=== PATIENT | female | born 1990 | race Caucasian/White ===

== ENCOUNTER 2016-11-04 06:00 | Inpatient (IN) ==
--- OUTSIDE RECORDS SUMMARY | 2016-11-04 06:12 | External Medical Summary | Referral Summary ---
:1990 Author Organization [facility] [address] [place] [id number] Care Team Providers Name Role Phone Tapan Lundberg Primary Care Physician Encounter VC Date(s): 11/22/15 - 11/22/15 [facility] [place] [phone] [place] Discharge Diagnosis: Well adult exam Discharge Diagnosis: Viral disease exposure Discharge Disposition: 01-Home or Self Care Attending Physician: Tapan Lundberg MD Admitting Physician: Tapan Lundberg MD Vital Signs Most recent to oldest [Reference Range]: 1 Temperature Tympanic [36.6-38.1 degC] 36.8 degC (11/22/15 7:28 AM) Peripheral Pulse Rate [60-100 bpm] 69 bpm (11/22/15 7:28 AM) Blood Pressure [90-140/60-90 mmHg] 114/68 mmHg (11/22/15 7:28 AM) SpO2 98 % (11/22/15 7:28 AM) Problem List Condition Effective Dates Status Health Status Informant Abscess of right thumb(Confirmed) Active Acute bronchitis(Confirmed) Active Acute maxillary sinusitis(Confirmed) Active infected uterus post 2008 Active miscarriage(Confirmed) Pain in right knee(Confirmed) Active Obesity(Confirmed) Active patient Acute paronychia(Confirmed) Active Allergies, Adverse Reactions, Alerts Substance Reaction Severity Status clindamycin Active Medications Mirena 52 mg intrauteral device 1 Each, IntraUteral, Once, # 1 Each, 0 Refill(s) Start Date: 12/23/13 Status: OrderedPrenatal 1 caps, Oral, Daily, 0 Refill(s) Start Date: 10/26/13 Status: Ordered Results No data available for this section Immunizations Vaccine Date Refusal Reason tetanus/diphth/pertuss (Tdap) adult/adol 01/01/10 tetanus/diphth/pertuss (Tdap) adult/adol 05/23/07 diphtheria/pertussis, whole cell/tetanus 07/10/93 diphtheria/pertussis, whole cell/tetanus 07/21/91 diphtheria/pertussis, whole cell/tetanus 02/25/90 diphtheria/pertussis, whole cell/tetanus 89 diphtheria/pertussis, whole cell/tetanus 89 haemophilus b conjugate (HbOC) vaccine 05/10/90 haemophilus b conjugate (HbOC) vaccine 05/01/90 hepatitis A adult vaccine 12/23/13 hepatitis A-hepatitis B vaccine 09/12/11 hepatitis B pediatric vaccine 01/05/96 hepatitis B pediatric vaccine 08/21/95 human papillomavirus vaccine 09/14/12 human papillomavirus vaccine 06/03/12 human papillomavirus vaccine 09/12/11 measles virus vaccine 02/25/90 measles/mumps/rubella virus vaccine 07/10/93 measles/mumps/rubella virus vaccine 05/11/91 meningococcal conjugate vaccine 09/12/11 poliovirus vaccine, inactivated 07/10/93 poliovirus vaccine, inactivated 02/25/90 poliovirus vaccine, inactivated 89 poliovirus vaccine, inactivated 89 Procedures Procedure Date Related Diagnosis Body Site LASIK1 2012 infected uterus post miscarriage 2009 1surgery on both eyes Social History Social History Type Response Smoking Status Never smoker Assessment and Plan Extracted from: Title: Ambulatory Patient Education Author: Tapan Lundberg MD Date: 11/22/15 Preventive Medicine Preventive Care for Adults, Female A healthy lifestyle and preventive care can promote health and wellness. Preventive health guidelines for women include the following sebastian practices. A routine yearly physical is a good way to check with your health care provider about your health and preventive screening. It is a chance to share any concerns and updates on your health and to receive a thorough exam. Visit your dentist for a routine exam and preventive care every 6 months. [place] your teeth twice a day and floss once a day. Good oral hygiene prevents tooth decay and gum disease. The frequency of eye exams is based on your age, health, family medical history, use of contact lenses, and other factors. Follow your health care provider's recommendations for frequency of eye exams. Eat a healthy diet. Foods like vegetables, fruits, whole grains, low- fat dairy products, and lean protein foods contain the nutrients you need without too many calories. Decrease your intake of f oods high in solid fats, added sugars, and salt. Eat the right amount of calories for you.Get information about a proper diet from your health care provider, if necessary. Regular physical exercise is one of the most important things you can do for your health. Most adults should get at least 150 minutes of moderate- intensity exercise (any activity that increases y our heart rate and causes you to sweat) each week. In addition, most adults need muscle-strengthening exercises on 2 or more days a week. Maintain a healthy weight. The body mass index (BMI) is a screening tool to identify possible weight problems. It provides an estimate of body fat based on height and weight. Your health care pro vider can find your BMI and can help you achieve or maintain a healthy weight. For adults 20 years and older: A BMI below 18.5 is considered underweight. A BMI of 18.5 to 24.9 is normal. A BMI of 25 to 29.9 is considered overweight. A BMI of 30 and above is considered obese. Maintain normal blood lipids and cholesterol levels by exercising and minimizing your intake of saturated fat. Eat a balanced diet with plenty of fruit and vegetables. Blood tests for lipids and cholesterol should begin at age 20 and be repeated every 5 years. If your lipid or cholesterol levels are high, you are over 50, or you are at high risk for heart disease, you may need your cholesterol levels checked more frequently.Ongoing high lipid and cholesterol levels should be treated with medicines if diet and exercise are not working. If you smoke, find out from your health care provider how to quit. If you do not use tobacco, do not start. Lung cancer screening is recommended for adults aged 5580 years who are at high risk for developing lung cancer because of a history of smoking. A yearly low-dose CT scan of the lungs is recom mended for people who have at least a [id number] history of smoking and are a current smoker or have quit within the past 15 years. A pack year of smoking is smoking an average of 1 pack of cigarettes a day for 1 year (for example: 1 pack a day for 30 years or 2 packs a day for 15 years). Yearly screening should continue until the smoker has stopped smoking for at least 15 years. Yearly screening sh ould be stopped for people who develop a health problem that would prevent them from having lung cancer treatment. If you are , do not drink alcohol. If you are , be very cautious about drinking alcohol. If you are not and choose to drink alcohol, do not have more than 1 drink pe r day. One drink is considered to be 12 ounces (355 mL) of beer, 5 ounces (148 mL) of wine, or 1.5 ounces (44 mL) of liquor. Avoid use of street drugs. Do not share needles with anyone. Ask for help if you need support or instructions about stopping the use of drugs. High blood pressure causes heart disease and increases the risk of stroke. Your blood pressure should be checked at least every 1 to 2 years. Ongoing high blood pressure should be treated with me dicines if weight loss and exercise do not work. If you are 5579 years old, ask your health care provider if you should take aspirin to prevent strokes. Diabetes screening is done by taking a blood sample to check your blood glucose level after you have not eaten for a certain period of time (fasting). If you are not overweight and you do not hav e risk factors for diabetes, you should be screened once every 3 years starting at age 45. If you are overweight or obese and you are 4070 years of age, you should be screened for diabetes every year as part of your cardiovascular risk assessment. Breast cancer screening is essential preventive care for women. You should practice "breast self-awareness." This means understanding the normal appearance and feel of your breasts and may includ e breast self-examination. Any changes detected, no matter how small, should be reported to a health care provider. Women in their 20s and 30s should have a clinical breast exam (CBE) by a health care p trudi as part of a regular health exam every 1 to 3 years. After age 40, women should have a CBE every year. Starting at age 40, women should consider having a mammogram (breast X-ray test) every year . Women who have a family history of breast cancer should talk to their health care provider about genetic screening. Women at a high risk of breast cancer should talk to their health care providers about having an MRI and a mammogram every year. Breast cancer gene (BRCA)-related cancer risk assessment is recommended for women who have family members with BRCA-related cancers. BRCA-related cancers include breast, ovarian, tubal, and perit dubon cancers. Having family members with these cancers may be associated with an increased risk for harmful changes (mutations) in the breast cancer genes BRCA1 and BRCA2. Results of the assessment julio cesar l determine the need for genetic counseling and BRCA1 and BRCA2 testing. Your health care provider may recommend that you be screened regularly for cancer of the pelvic organs (ovaries, uterus, and vagina). This screening involves a pelvic examination, including check ing for microscopic changes to the surface of your cervix (Pap test). You may be encouraged to have this screening done every 3 years, beginning at age 21. For women ages 3065, health care providers may recommend pelvic exams and Pap testing every 3 years, or they may recommend the Pap and pelvic exam, combined with testing for human papilloma vi kitty (HPV), every 5 years. Some types of HPV increase your risk of cervical cancer. Testing for HPV may also be done on women of any age with unclear Pap test results. Other health care providers may not recommend any screening for non women who are considered low risk for pelvic cancer and who do not have symptoms. Ask your health care provider if a screening pelvic exam is right for you. If you have had past treatment for cervical cancer or a condition that could lead to cancer, you need Pap tests and screening for cancer for at least 20 years after your treatment. If Pap tests h ave been discontinued, your risk factors (such as having a new sexual partner) need to be reassessed to determine if screening should resume. Some women have medical problems that increase the chance of getting cervical cancer. In these cases, your health care provider may recommend more frequent screening and Pap tests. Colorectal cancer can be detected and often prevented. Most routine colorectal cancer screening begins at the age of 50 years and continues through age 75 years. However, your health care provide r may recommend screening at an earlier age if you have risk factors for colon cancer. On a yearly basis, your health care provider may provide home test kits to check for hidden blood in the stool. Use of a small camera at the end of a tube, to directly examine the colon ( sigmoidoscopy or colonoscopy), can detect the earliest forms of colorectal cancer. Talk to your health care provider about this at age 50, when routine screening begins. Direct exam of the colon should be repeated every 510 years through age 75 years, unless early forms of precancerous polyps or small growths are found. People who are at an increased risk for hepatitis B should be screened for this virus. You are considered at high risk for hepatitis B if: You were born in a country where hepatitis B occurs often. Talk with your health care provider about which countries are considered high risk. Your parents were born in a high-risk country and you have not received a shot to protect against hepatitis B (hepatitis B vaccine). You have HIV or AIDS. You use needles to inject street drugs. You live with, or have sex with, someone who has hepatitis B. You get hemodialysis treatment. You take certain medicines for conditions like cancer, organ transplantation, and autoimmune conditions. Hepatitis C blood testing is recommended for all people born from 1945 through 1965 and any individual with known risks for hepatitis C. Practice safe sex. Use condoms and avoid high-risk sexual practices to reduce the spread of sexually transmitted infections (STIs). STIs include gonorrhea, chlamydia, syphilis, trichomonas, herpe s, HPV, and human immunodeficiency virus (HIV). Herpes, HIV, and HPV are viral illnesses that have no cure. They can result in disability, cancer, and . You should be screened for sexually transmitted illnesses (STIs) including gonorrhea and chlamydia if: You are sexually active and are younger than 24 years. You are older than 24 years and your health care provider tells you that you are at risk for this type of infection. Your sexual activity has changed since you were last screened and you are at an increased risk for chlamydia or gonorrhea. Ask your health care provider if you are at risk. If you are at risk of being infected with HIV, it is recommended that you take a prescription medicine daily to prevent HIV infection. This is called preexposure prophylaxis (PrEP). You are considered at risk if: You are sexually active and do not regularly use condoms or know the HIV status of your partner(s). You take drugs by injection. You are sexually active with a partner who has HIV. Talk with your health care provider about whether you are at high risk of being infected with HIV. If you choose to begin PrEP, you should first be tested for HIV. You should then be tested every 3 months for as long as you are taking PrEP. Osteoporosis is a disease in which the bones lose minerals and strength with aging. This can result in serious bone fractures or breaks. The risk of osteoporosis can be identified using a bone de nsity scan. Women ages 65 years and over and women at risk for fractures or osteoporosis should discuss screening with their health care providers. Ask your health care provider whether you should take a calcium supplement or vitamin D to reduce the rate of osteoporosis. Menopause can be associated with physical symptoms and risks. Hormone replacement therapy is available to decrease symptoms and risks. You should talk to your health care provider about whether hormone replacement therapy is right for you. Use sunscreen. Apply sunscreen liberally and repeatedly throughout the day. You should seek shade when your shadow is shorter than you. Protect yourself by wearing long sleeves, pants, a wide-cande mmed hat, and sunglasses year round, whenever you are outdoors. Once a month, do a whole body skin exam, using a mirror to look at the skin on your back. Tell your health care provider of new moles, moles that have irregular borders, moles that are larger mari n a pencil eraser, or moles that have changed in shape or color. Stay current with required vaccines (immunizations). Influenza vaccine. All adults should be immunized every year. Tetanus, diphtheria, and acellular pertussis (Td, Tdap) vaccine. women should receive 1 dose of Tdap vaccine during each . The dose should be obtained regardless of the length o f time since the last dose. Immunization is preferred during the [id number] week of gestation. An adult who has not previously received Tdap or who does not know her vaccine status should receive 1 dos e of Tdap. This initial dose should be followed by tetanus and diphtheria toxoids (Td) booster doses every 10 years. Adults with an unknown or incomplete history of completing a 3-dose immunization seri es with Td-containing vaccines should begin or complete a primary immunization series including a Tdap dose. Adults should receive a Td booster every 10 years. Varicella vaccine. An adult without evidence of immunity to varicella should receive 2 doses or a second dose if she has previously received 1 dose. females who do not have evidence of i mmunity should receive the first dose after . This first dose should be obtained before leaving the health care facility. The second dose should be obtained 48 weeks after the first dose. Human papillomavirus (HPV) vaccine. Females aged 1326 years who have not received the vaccine previously should obtain the 3-dose series. The vaccine is not recommended for use in fem ales. However, testing is not needed before receiving a dose. If a female is found to be after receiving a dose, no treatment is needed. In that case, the remaining doses should be de layed until after the . Immunization is recommended for any person with an immunocompromised condition through the age of 26 years if she did not get any or all doses earlier. During the 3-dose series, the second dose should be obtained 48 weeks after the first dose. The third dose should be obtained 24 weeks after the first dose and 16 weeks after the second dose. Zoster vaccine. One dose is recommended for adults aged 60 years or older unless certain conditions are present. Measles, mumps, and rubella (MMR) vaccine. Adults born before 1957 generally are considered immune to measles and mumps. Adults born in 1957 or later should have 1 or more doses of MMR vaccine un less there is a contraindication to the vaccine or there is laboratory evidence of immunity to each of the three diseases. A routine second dose of MMR vaccine should be obtained at least 28 days after the first dose for students attending postsecondary schools, health care workers, or international travelers. People who received inactivated measles vaccine or an unknown type of measles vaccine during should receive 2 doses of MMR vaccine. People who received inactivated mumps vaccine or an unknown type of mumps vaccine before 1978 and are at high risk for mumps infection should consider immunization with 2 doses of MMR vaccine. For females of childbearing age, rubella immunity should be determined. If there is no evidence of immunity, females who are not should be vaccinated. If there is no evidence of immunity, females who are should delay immunization until after . Unvaccinated health care workers born before 1957 who lack laboratory evidence of measles, mumps, or rubella immunity or laboratory confirmation of disease should consider measles and mumps immunization with 2 doses of MMR vaccine or rubella immunization with 1 dose of MMR vaccine. Pneumococcal 13-valent conjugate (PCV13) vaccine. When indicated, a person who is uncertain of his immunization history and has no record of immunization should receive the PCV13 vaccine. All salty lts 65 years of age and older should receive this vaccine. An adult aged 19 years or older who has certain medical conditions and has not been previously immunized should receive 1 dose of PCV13 vaccine . This PCV13 should be followed with a dose of pneumococcal polysaccharide ( PPSV23) vaccine. Adults who are at high risk for pneumococcal disease should obtain the PPSV23 vaccine at least 8 weeks after the dose of PCV13 vaccine. Adults older than 65 years of age who have normal immune system function should obtain the PPSV23 vaccine dose at least 1 year after the dose of PCV13 vaccine. Pneumococcal polysaccharide (PPSV23) vaccine. When PCV13 is also indicated, PCV13 should be obtained first. All adults aged 65 years and older should be immunized. An adult younger than age 65 ye ars who has certain medical conditions should be immunized. Any person who resides in a residential or long-term care facility should be immunized. An adult smoker should be immunized. People with an i mmunocompromised condition and certain other conditions should receive both PCV13 and PPSV23 vaccines. People with human immunodeficiency virus (HIV) infection should be immunized as soon as possible af ter diagnosis. Immunization during chemotherapy or radiation therapy should be avoided. Routine use of PPSV23 vaccine is not recommended for [place] Indians, [place] Natives, or people younger than 65 y ears unless there are medical conditions that require PPSV23 vaccine. When indicated, people who have unknown immunization and have no record of immunization should receive PPSV23 vaccine. One-time kiera ccination 5 years after the first dose of PPSV23 is recommended for people aged 1964 years who have chronic kidney failure, nephrotic syndrome, asplenia , or immunocompromised conditions. People who r eceived 12 doses of PPSV23 before age 65 years should receive another dose of PPSV23 vaccine at age 65 years or later if at least 5 years have passed since the previous dose. Doses of PPSV23 are not needed for people immunized with PPSV23 at or after age 65 years. Meningococcal vaccine. Adults with asplenia or persistent complement component deficiencies should receive 2 doses of quadrivalent meningococcal conjugate (MenACWY-D) vaccine. The doses should be obtained at least 2 months apart. Microbiologists working with certain meningococcal bacteria, recruits, people at risk during an outbreak, and people who travel to or live in countries with a high rate of meningitis should be immunized. A first-year college student up through age 21 years who is living in a residence goldsmith should receive a dose if she did not receive a dose on or after her 6th birthday. Adults who have certain high-risk conditions should receive one or more doses of vaccine. Hepatitis A vaccine. Adults who wish to be protected from this disease, have certain high-risk conditions, work with hepatitis A-infected animals, work in hepatitis A research labs, or travel to or work in countries with a high rate of hepatitis A should be immunized. Adults who were previously unvaccinated and who anticipate close contact with an international adoptee during the first 60 days after arrival in the [place] from a country with a high rate of hepatitis A should be immunized. Hepatitis B vaccine. Adults who wish to be protected from this disease, have certain high-risk conditions, may be exposed to blood or other infectious body fluids, are household contacts or sex p artners of hepatitis B positive people, are clients or workers in certain care facilities, or travel to or work in countries with a high rate of hepatitis B should be immunized. Haemophilus influenzae type b (Hib) vaccine. A previously unvaccinated person with asplenia or sickle cell disease or having a scheduled splenectomy should receive 1 dose of Hib vaccine. Regardle ss of previous immunization, a recipient of a hematopoietic stem cell transplant should receive a 3-dose series 612 months after her successful transplant. Hib vaccine is not recommended for adults with HIV infection. Preventive Services / Frequency Ages 19 to 39 years Blood pressure check. / Every 35 years. Lipid and cholesterol check. / Every 5 years beginning at age 20. Clinical breast exam. / Every 3 years for women in their 20s and 30s. BRCA-related cancer risk assessment. / For women who have family members with a BRCA-related cancer (breast, ovarian, tubal, or peritoneal cancers). Pap test. / Every 2 years from ages 21 through 29. Every 3 years starting at age 30 through age 65 or 70 with a history of 3 consecutive normal Pap tests. HPV screening. / Every 3 years from ages 30 through ages 65 to 70 with a history of 3 consecutive normal Pap tests. Hepatitis C blood test. / For any individual with known risks for hepatitis C. Skin self-exam. / Monthly. Influenza vaccine. / Every year. Tetanus, diphtheria, and acellular pertussis (Tdap, Td) vaccine. / Consult your health care provider. women should receive 1 dose of Tdap vaccine during each . 1 dose of Td every 10 years. Varicella vaccine. / Consult your health care provider. females who do not have evidence of immunity should receive the first dose after . HPV vaccine. / 3 doses over 6 months, if 26 and younger. The vaccine is not recommended for use in females. However, testing is not needed before receiving a dose. Measles, mumps, rubella (MMR) vaccine. / You need at least 1 dose of MMR if you were born in 1957 or later. You may also need a 2nd dose. For females of childbearing age, rubella immunity shoul d be determined. If there is no evidence of immunity, females who are not should be vaccinated. If there is no evidence of immunity, females who are should delay immunization until after . Pneumococcal 13-valent conjugate (PCV13) vaccine. / Consult your health care provider. Pneumococcal polysaccharide (PPSV23) vaccine. / 1 to 2 doses if you smoke cigarettes or if you have certain conditions. Meningococcal vaccine. / 1 dose if you are age 19 to 21 years and a first-year college student living in a residence g[place], or have one of several medical conditions, you need to get vaccinated against meningococcal disease. You may also need additional booster doses. Hepatitis A vaccine. / Consult your health care provider. Hepatitis B vaccine. / Consult your health care provider. Haemophilus influenzae type b (Hib) vaccine. / Consult your health care provider. Ages 40 to 64 years Blood pressure check. / Every year. Lipid and cholesterol check. / Every 5 years beginning at age 20 years. Lung cancer screening. / Every year if you are aged 5580 years and have a 85-ifus-qjah history of smoking and currently smoke or have quit within the past 15 years. Yearly screening is stopped once you have quit smoking for at least 15 years or develop a health problem that would prevent you from having lung cancer treatment. Clinical breast exam. / Every year after age 40 years. BRCA-related cancer risk assessment. / For women who have family members with a BRCA-related cancer (breast, ovarian, tubal, or peritoneal cancers). Mammogram. / Every year beginning at age 40 years and continuing for as long as you are in good health. Consult with your health care provider. Pap test. / Every 3 years starting at age 30 years through age 65 or 70 years with a history of 3 consecutive normal Pap tests. HPV screening. / Every 3 years from ages 30 years through ages 65 to 70 years with a history of 3 consecutive normal Pap tests. Fecal occult blood test (FOBT) of stool. / Every year beginning at age 50 years and continuing until age 75 years. You may not need to do this test if you get a colonoscopy every 10 years. Flexible sigmoidoscopy or colonoscopy. / Every 5 years for a flexible sigmoidoscopy or every 10 years for a colonoscopy beginning at age 50 years and continuing until age 75 years. Hepatitis C blood test. / For all people born from 1945 through 1965 and any individual with known risks for hepatitis C. Skin self-exam. / Monthly. Influenza vaccine. / Every year. Tetanus, diphtheria, and acellular pertussis (Tdap/Td) vaccine. / Consult your health care provider. women should receive 1 dose of Tdap vaccine during each . 1 dose of Td every 10 years. Varicella vaccine. / Consult your health care provider. females who do not have evidence of immunity should receive the first dose after . Zoster vaccine. / 1 dose for adults aged 60 years or older. Measles, mumps, rubella (MMR) vaccine. / You need at least 1 dose of MMR if you were born in 1957 or later. You may also need a second dose. For females of childbearing age, rubella immunity sh ould be determined. If there is no evidence of immunity, females who are not should be vaccinated. If there is no evidence of immunity, females who are should delay immunization until after . Pneumococcal 13-valent conjugate (PCV13) vaccine. / Consult your health care provider. Pneumococcal polysaccharide (PPSV23) vaccine. / 1 to 2 doses if you smoke cigarettes or if you have certain conditions. Meningococcal vaccine. / Consult your health care provider. Hepatitis A vaccine. / Consult your health care provider. Hepatitis B vaccine. / Consult your health care provider. Haemophilus influenzae type b (Hib) vaccine. / Consult your health care provider. Ages 65 years and over Blood pressure check. / Every year. Lipid and cholesterol check. / Every 5 years beginning at age 20 years. Lung cancer screening. / Every year if you are aged 5580 years and have a 38-dnst-dzdq history of smoking and currently smoke or have quit within the past 15 years. Yearly screening is stopped once you have quit smoking for at least 15 years or develop a health problem that would prevent you from having lung cancer treatment. Clinical breast exam. / Every year after age 40 years. BRCA-related cancer risk assessment. / For women who have family members with a BRCA-related cancer (breast, ovarian, tubal, or peritoneal cancers). Mammogram. / Every year beginning at age 40 years and continuing for as long as you are in good health. Consult with your health care provider. Pap test. / Every 3 years starting at age 30 years through age 65 or 70 years with 3 consecutive normal Pap tests. Testing can be stopped between 65 and 70 years with 3 consecutive normal Pap t ests and no abnormal Pap or HPV tests in the past 10 years. HPV screening. / Every 3 years from ages 30 years through ages 65 or 70 years with a history of 3 consecutive normal Pap tests. Testing can be stopped between 65 and 70 years with 3 consecutive normal Pap tests and no abnormal Pap or HPV tests in the past 10 years. Fecal occult blood test (FOBT) of stool. / Every year beginning at age 50 years and continuing until age 75 years. You may not need to do this test if you get a colonoscopy every 10 years. Flexible sigmoidoscopy or colonoscopy. / Every 5 years for a flexible sigmoidoscopy or every 10 years for a colonoscopy beginning at age 50 years and continuing until age 75 years. Hepatitis C blood test. / For all people born from 1945 through 1965 and any individual with known risks for hepatitis C. Osteoporosis screening. / A one-time screening for women ages 65 years and over and women at risk for fractures or osteoporosis. Skin self-exam. / Monthly. Influenza vaccine. / Every year. Tetanus, diphtheria, and acellular pertussis (Tdap/Td) vaccine. / 1 dose of Td every 10 years. Varicella vaccine. / Consult your health care provider. Zoster vaccine. / 1 dose for adults aged 60 years or older. Pneumococcal 13-valent conjugate (PCV13) vaccine. / Consult your health care provider. Pneumococcal polysaccharide (PPSV23) vaccine. / 1 dose for all adults aged 65 years and older. Meningococcal vaccine. / Consult your health care provider. Hepatitis A vaccine. / Consult your health care provider. Hepatitis B vaccine. / Consult your health care provider. Haemophilus influenzae type b (Hib) vaccine. / Consult your health care provider. Family history and personal history of risk and conditions may change your health care provider's recommendations. This information is not intended to replace advice given to you by your health care provider. Make sure you discuss any questions you have with your health care provider. Document Released: 04/22/2002 Document Revised: 03/17/2015 Document Reviewed: 07/22/2011 ExitCare Patient Information [address] [facility]. No follow up information was provided. Extracted from: Title: Female Physical Author: Tapan Lundberg MD Date: 11/22/15 Impression and Plan Diagnosis Well adult exam (DCW41-EC Z00.00, Discharge, Medical). Viral disease exposure (ZHN84-IH Z20.828, Discharge, Medical). Plan: 1) Patient advised to postpone for at least 2-3 months ( getting her IUD out today), to help prevent Zika virus infection of the , due to potential exposure. If she or her get sick, then she will need to wait 6 months. 2) Bring in your wellness lab. 3) Flu shot to be obtained at work. 4) See me in one year and as needed. 5) Avoid alcohol and cat litter. 6) Healthy diet and daily exercise helps most things. 7) Immunizations reviewed.. Orders Orders (Selected) Outpatient Orders Ordered Periodic Comp Preventive Med 18 to 39 years Est 46510: . Dx/Order Association Plan: Diagnosis: Viral disease exposure Comment: Ordered: Periodic Comp Preventive Med 18 to 39 years Est 36027; 11/22/15 13:48:00 CDT, Well adult exam | Viral disease exposure Diagnosis: Well adult exam Comment: Ordered: Periodic Comp Preventive Med 18 to 39 years Est 60121; 11/22/15 13:48:00 CDT, Well adult exam | Viral disease exposure End of Orders .
--- OUTSIDE RECORDS SUMMARY | 2016-11-04 06:12 | External Medical Summary | Continuity of Care Document ---
:1990 Author Organization [facility] Allergies Medications Medication Packaging Start Date Stop Route Dosage Sig Date 04/17/2009 05/01/19 17 take 1 tablet VITAMINS by oral route every day Unspecified 11/05/2013 01/01/20 MIRENA 16 DIRECTED Tablet 04/09/2016 04/09/19 PRENATE 17 take 1 tablet ELITE by oral route every day Gram 04/09/2016 04/15/19 TERAZOL 7 17 insert 1 applicatorful by vaginal route every day for 7 days at bedtime Tablet 04/09/2016 07/10/19 17 take 1 tablet PLUS by oral route every day with a meal Tablet 08/26/2016 TYLENOL take 1 tablet by oral route every 4 hours as needed as needed Problems Date Dx Coded Attending Type Code Diagnosis Diagnosed By 05/02/2016 Irish Avendano Z34.81 Encounter for suprvsn of normal , first trimester 05/02/2016 Irish Avendano Z3A.13 13 weeks gestation of 06/12/2016 Irish Avendano Z34.82 Encounter for suprvsn of normal , second trimester 06/12/2016 Irish Avendano Z3A.18 18 weeks gestation of 09/27/2016 Irish Avendano Z34.83 Encounter for suprvsn of normal , third trimester 09/27/2016 Irish Avendano Z3A.34 34 weeks gestation of Procedures Code Description Performed By Performed On 05/02/2016 13913 Ultrasound, Nuchal Translucency Measurement 06/12/2016 87450 Ultrasnd exam of preg uterus, compl OB 09/27/2016 46284 Visit No Charge Results Encounters ACCT Visit Discharge Status Pt. Type Provider Facility Loc./Unit Complaint No. Date/Time [id number] 10/21/2016 10/21/2016 CLS Outpatient Juan Alberto, 15:15:00 23:59:59 Irish Cristobal [id number] 10/14/2016 10/14/2016 CLS Outpatient Juan Alberto, 15:15:00 23:59:59 Irish L [id number] 10/07/2016 10/07/2016 CLS Outpatient Juan Alberto, 09:30:00 23:59:59 Irish L [id number] 09/27/2016 09/27/2016 CLS Outpatient Juan Alberto, 14:10:00 23:59:59 Irish L [id number] 09/09/2016 09/09/2016 CLS Outpatient Juan Alberto, 09:20:00 23:59:59 Irish L [id number] 08/29/2016 08/29/2016 CLS Outpatient Juan Alberto, 14:00:00 23:59:59 Irish L [id number] 08/07/2016 08/07/2016 CLS Outpatient Juan Alberto, 10:00:00 23:59:59 Irish L [id number] 07/10/2016 07/10/2016 CLS Outpatient Juan Alberto, 10:45:00 23:59:59 Irish L [id number] 06/12/2016 06/12/2016 CLS Outpatient Juan Alberto, 09:15:00 23:59:59 Irish L [id number] 06/12/2016 06/12/2016 CLS Outpatient Juan Alberto, 08:45:00 23:59:59 Irish L [id number] 06/07/2016 06/07/2016 CLS Outpatient Juan Alberto, 14:58:00 23:59:59 Irish L [id number] 05/29/2016 05/29/2016 CLS Outpatient Juan Alberto, 11:00:00 23:59:59 Irish L [id number] 05/02/2016 05/02/2016 CLS Outpatient Juan Alberto, 09:45:00 23:59:59 Irish L [id number] 05/02/2016 05/02/2016 CLS Outpatient Juan Alberto, 09:15:00 23:59:59 Irish L [id number] 04/09/2016 04/09/2016 CLS Outpatient Juan Alberto, 09:00:00 23:59:59 Irish L [id number] 01/01/2016 01/01/2016 CLS Outpatient Juan Alberto, 11:30:00 23:59:59 Irish L [id number] 12/13/2015 12/13/2015 CLS Outpatient Alexandra, 10:45:00 23:59:59 Brittany [id number] 11/22/2015 11/22/2015 CLS Outpatient [place], 08:30:00 23:59:59 Treasure Motron [id number] 10/28/2016 ACT Outpatient Juan Alberto, 15:15:00 Irish Cristobal [id number] 05/02/2016 Document 09:39:32 Registration [id number] 01/01/2016 Document 12:17:48 Registration
--- OUTSIDE RECORDS SUMMARY | 2016-11-04 06:12 | External Medical Summary | Continuity of Care Document ---
:1990 Author Organization [facility] Address [address] [place], [place] [id number] Phone Care Team Providers Name Role Phone Tapan Lundberg MD Unavailable Unavailable Allergies, Adverse Reactions, Alerts Substance Reaction Severity Status clindamycin Rash Unknown Active Medications Medication Instructions Dosage Effective Dates Status Comments (start - stop) Tylenol 325 mg take 1 tablet by - Active tablet oral route every 4 hours as needed as needed 28 mg take 1 by Oral route Not Available - Active iron-800 mcg every day tablet Problems Condition Effective Dates (start - stop) Clinical Status Encntr for try on baster exam (general) - (routine) w abnormal findings Encounter for suprvsn of normal - , third trimester 34 weeks gestation of - Encounter for suprvsn of normal - , second trimester 18 weeks gestation of - Encounter for suprvsn of normal - , third trimester 30 weeks gestation of - Pap Smear Screening, Cervix - Pap Smear Screening, Cervix - Encounter for suprvsn of normal - , first trimester 9 weeks gestation of - Encounter for routine checking of intrauterine contracep dev Encounter for removal of intrauterine - contraceptive device Encounter for routine checking of intrauterine contracep dev Encounter for suprvsn of normal - , first trimester 13 weeks gestation of - Encounter for suprvsn of normal - , first trimester 13 weeks gestation of - Encounter for suprvsn of normal - , second trimester 16 weeks gestation of - Encounter for suprvsn of normal - , second trimester 18 weeks gestation of - Encounter for suprvsn of normal - , second trimester 22 weeks gestation of - Encounter for suprvsn of normal - , second trimester 26 weeks gestation of - Encounter for suprvsn of normal - , third trimester 36 weeks gestation of - Encounter for suprvsn of normal - , third trimester 35 weeks gestation of - Procedures Procedure Date OB Visit No Charge Immuniz admnin, 1 vac, sngl/combo 19 Yrs + TDAP VACCINE >7 IM Results Test Name Date and Time Measure Units Reference Range Abnormal Flag Comments Unknown Advance Directives Directive Yes / No Effective Date File Name Unknown Encounters Encounter Practice Location Reason(s) Diagnoses Date Provider Care Team Description For Visit Members Cathy [place] Encounter for Juan Alberto Referring In Womens suprvsn of Irish. Provider: Health DANIELE, normal 7 [address] , third Medical [address] [address]22, [email or web address] Mize Johnie, [address] [place] [address], weeks gestation Chin Delatorre, of 120, Center , [place] [address], [place], tel:[phone] [place], [id number] , . [id number]. tel: [phone] Cathy [place] Encounter for Juan Alberto In Womens suprvsn of [place]. Health [place], normal 7 700 PO Box , third Medical 1522, [email or web address] [facility] [place], weeks gestation Chin Delatorre, of 120, [id number], [facility], tel:[phone] [address] , [place]. tel: [phone] Cathy [place] Encounter for Moy-2 Juan Alberto Referring In Womens suprvsn of 1-201 [place]. Provider: Health [place], normal 7 700 Irish PO Box , third Medical Juan Alberto L, 1522, [email or web address] Center [address] [place], weeks gestation Chin Delatorre, of [address] [id number], [place] [address], [place]NA, [place], tel: [phone] LENA, , . [id number]. tel: tel: [phone] Cathy [place] Encounter for Warren-2 Juan Alberto In Womens suprvsn of 2-201 Irish. Health [place], normal 7 700 PO Box , third Medical 1522, [email or web address] [place], weeks gestation Chin Delatorre, of 120, [id number], [place], [place], tel:[phone] , [place]. tel: [phone] Cathy [place] Encounter for May-3 Juan Alberto In Womens suprvsn of 1-201 Irish. Health [place], normal 7 700 PO Box , Medical 1522, second [facility] [place], [email or web address] Chin Delatorre, weeks gestation 120, , of [facility] [place], tel: [phone] , [place]. tel: [phone] Cathy [place] Encounter for May-0 Juan Alberto In Womens suprvsn of 3-201 Irish. Health [place], normal 7 700 PO Box , Medical 1522, second [facility] [place], [email or web address] Chin Delatorre, weeks gestation 120, [id number], of [place], [place], tel: [phone] , [place]. tel: [phone] Cathy [place] Encounter for Apr-0 Juan Alberto In Womens suprvsn of 5-201 Irish. Health [place], normal 7 700 PO Box , Medical 1522, second [facility] [place], [email or web address] Chin Delatorre, weeks gestation 120, [id number], of [place], [place], tel:[phone] , [place]. tel: [phone] Cathy [place] Encounter for Apr-0 Juan Alberto In Womens Ultrasound suprvsn of 5-201 Irish. Health DANIELE, normal 7 700 PO Box , Medical 1522, second [facility] [place], [email or web address] Chin Delatorre, weeks gestation 120, [id number], of [facility] [place], tel:[phone] , [place]. tel: [phone] Cathy [place] Encounter for Mar-2 Juan Alberto In Womens suprvsn of 2-201 Irish. Health DANIELE, normal 7 700 PO Box , Medical 1522, second [facility] [place], [email or web address] Chin Delatorre, weeks gestation 120, [id number], of [place], [place], tel:[phone] , [place]. tel: [phone] Cathy [place] Encounter for Feb-2 Juan Alberto In Womens suprvsn of 3-201 Irish. Marysol SANABRIA, normal 7 700 PO Box , first Medical 1522, [facility], weeks gestation Chin Delatorre, of 120, [id number], [place], [place], tel:[phone] , [place]. tel: [phone] Cathy [place] Encounter for Feb-2 Juan Alberto In Womens Ultrasound suprvsn of 3-201 Irish. Marysol SANABRIA, normal 7 700 PO Box , first Medical 1522, [email or web address] [facility], weeks gestation Chin Delatorre, of 120, [id number], [facility] [place], tel:[phone] , [place]. tel: [phone] Cathy [place] Pap Smear Florentino-3 Juan Alberto In Womens Screening, 1-201 Irish. Health DANIELE, CervixEncounter 7 700 PO Box for suprvsn of Medical 1522, normal [facility] [place], , first Chin Delatorre, trimester9 weeks 120, [id number], gestation of [place], [place], tel:[phone] , [place]. tel: [phone] Cathy [place] Encounter for Oct-2 Juan Alberto In Womens routine checking 4-201 Irish. Health [place], of intrauterine 6 700 PO Box contracep Medical 1522, devEncounter for [place], removal of Chin Delatorre, intrauterine 120, [id number], contraceptive [place], device [place], tel:[phone] , [place]. tel:[phone] [facility] [place] Encntr for try on baster Dec- Alexandra In Womens exam (general) 5-201 Brittany. Health DANIELE, (routine) w 6 700 PO Box abnormal Medical 1522, findingsPap [facility], Smear Screening, Chin Delatorre, Cervix 120, , [place], [place], tel:[phone] , [place]. tel:[phone] [facility] [place] Encounter for Sep-1 Garza In Womens routine checking 4-201 Treasure. Health DANIELE, of intrauterine 6 700 PO Box contracep dev Medical 1522, [place], , Chin PAREDES, 120, [id number], [place], [place], tel:[phone] , [place]. tel:[phone] [facility] Oct-0 Juan Alberto In Womens 6-201 Irish. Health DANIELE, 3 700 PO Box Medical 1522, [place], , Chin PARED[place], 120, [id number], [place], [place], tel:[phone] , [place]. tel:[phone] Family History Family Member Diagnosis Age At Onset Maternal Grandmother Diabetes mellitus Mother Thyroid Disorder Maternal Grandmother Hypertension Maternal Grandmother Cardiovascular Disease Maternal grandmother Cancer, breast 68 Immunizations Vaccine Date Status Comments Tdap completed Source: New Immunization Record Influenza, injectable, completed Note: work ; Source: Other quadrivalent, preservative free, Provider 3 yrs or older Payers Payer name Insurance type Covered libertarian ID Authorization(s) [employer] CI [id number] [employer] CI [id number] Social History Type Description Quantity Date Captured Alcohol Use Details No Caffeine Use Details Unknown Tobacco Use Status Unknown Smoking Status Never smoker Vital Signs Date / Height Weight BMI Pulse Blood Temperature Respiratory Body Head BMI Time: Rate Pressure Rate Surface Circumference percentile Area 215.70 35.8 118/60 lbs 9 mm[Hg] 2:50 kg/m PM eter (2) Chief Complaint And Reason For Visit Unknown Chief Complaint And Reason For Visit Reason For Referral Reason For Referral Unknown Plan Of Care Date Type Action Status Appointment Joyce [place]lass BOOKED Appointment Joyce Douglass BOOKED Future Order: Lab Order Pap Smear With HPV Reflex If ASCUS Ordered ([id number]) Future Order: Radiology Order Nuchal Translucency ([id number]) Ordered Future Order: Radiology Order Complete OB Ultrasound > 14 Ordered Weeks ([id number]) Date Type Problem Goal Intervention Status Start Date Unknown. History Of Present Illness Encounter Date Complaint History Of Present Illness This patient has no known history of present illness Functional Status Encounter Date Functional Assessment Cognitive Assessment Unknown Medications Administered Medication Instructions Dosage Effective Dates (start - stop) Status Comments Drug Treatment Unknown Instructions Date Instruction Additional Information domestic violence seat belt use childbirth classes / hospital facilities hospital registration genetic testing sexual activity exercise indications for ultrasound influenza vaccine environmental / work hazards new ob handbook [facility] docs HIV and other routine tests risk factors identified by history anticipated course of care nutrition and weight gain counseling, special diet toxoplasmosis precautions (cats / raw meat) travel use of any medications (including supplements, vitamins, herbs, OTC drugs) Giving encouragement to exercise Related to Body mass index 31.0-31.9
--- OUTSIDE RECORDS SUMMARY | 2016-11-04 06:12 | External Medical Summary | Continuity of Care Document ---
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 Provider: Marysol SANABRIA, normal 7 700 Irish [address] , third Medical Juan Alberto L, 1522, [email or web address] [place] [address], weeks gestation Chin Delatorre, of 120, [place] , [place] [facility] 120, [place], [place], tel:[phone] [place], [phone] , [place]. [id number]. tel: tel: [phone] Cathy [place] Moy-0 Juan Alberto In Womens 3-201 Irish. Marysol SANABRIA, 7 700 PO Box Medical 1522, [place], Chin Delatorre, 120, [id number], [place], [place], tel:[phone] , [place]. tel: [phone] Cathy [place] Encounter for Warren-2 Juan Alberto In Womens suprvsn of 2-201 Irish. Marysol SANABRIA, normal 7 700 PO Box , third Medical 1522, [email or web address] [facility] Chin [place], of 120, [id number], [facility], tel:[phone] , [place]. tel: [phone] Cathy [place] Encounter for July-3 Juan Alberto In Womens suprvsn of 1-201 Irish. Health [place], normal 7 700 PO Box , Medical 1522, second Center [place], Chin Delatorre, weeks gestation 120, [id number], [facility] [place], tel:[phone] , [place]. tel: [phone] Cathy [place] Encounter for May-0 Juan Alberto In Womens suprvsn of 3-201 Irish. Health [place], normal 7 700 PO Box , Medical 1522, second Center [place], [email or web address] Chin Delatorre, weeks gestation 120, [id number], of [place], tel:[phone] , [place]. tel: [phone] Cathy [place] Encounter for Apr-0 Juan Alberto In Womens suprvsn of 5-201 Irish. Health [place], normal 7 700 PO Box , Medical 1522, second [facility], [email or web address] Chin [place]re, weeks gestation 120, [id number], [facility] [place], tel:[phone] , [place]. tel: [phone] Cathy [place] Encounter for Apr-0 Juan Alberto In Womens Ultrasound suprvsn of 5-201 Irish. Health [place], normal 7 700 PO Box , Medical 1522, second Center [place], [email or web address] Chin Delatorre, weeks gestation 120, [id number], of [facility] [place], tel:[phone] , [place]. tel: [phone] Cathy [place] Encounter for Mar-2 Juan Alberto In Womens suprvsn of 2-201 Irish. Health [place], normal 7 700 PO Box , Medical 1522, second [facility], [email or web address] Chin [place], weeks gestation 120, [id number], [facility] [place], tel:[phone] , [place]. tel:[phone] Cathy [place] Encounter for Feb-2 Juan Alberto In Womens suprvsn of 3-201 Irish. Health [place], normal 7 700 PO Box , first Medical 1522, [email or web address] Center [place], weeks gestation Chin Delatorre, of 120, , [place], tel:[phone] , [place]. tel: [phone] Cathy [place] Encounter for Feb-2 Juan Alberto In Womens Ultrasound suprvsn of 3-201 Irish. Health DANIELE, normal 7 700 PO Box , first Medical 1522, [email or web address] [facility], weeks gestation Chin [place], of 120, , [place], [place], tel:[phone] , [place]. tel: [phone] Cathy [place] Pap Smear Florentino-3 Juan Alberto In Womens Screening, - Irish. Health DANIELE, CervixEncounter 7 700 PO Box for suprvsn of Medical 1522, normal [facility], , first Chin Del[place]re, trimester9 weeks 120, , gestation of [place], [place], tel:[phone] , [place]. tel: [phone] Cathy [place] Encounter for Oct-2 Juan Alberto In Womens routine checking -201 Irish. Health DANIELE, of intrauterine 6 700 PO Box contracep Medical 1522, devEncounter for [facility], removal of Chin Delatorre, intrauterine 120, , contraceptive [place], device [place], tel:[phone] , [place]. tel: [phone] Cathy [place] Encntr for acid tender Oct-0 Alexandra In Womens exam (general) 5-201 Brittany. Health DANIELE, (routine) w 6 700 PO Box abnormal Medical 1522, findingsPap [facility], Smear Screening, Chin Delatorre, Cervix 120, , [place], tel:[phone] , [place]. tel: [phone] Cathy [place] Encounter for Sep-1 Garza In Womens routine checking 4-201 [place]. Health DANIELE, of intrauterine 6 700 PO Box contracep dev Medical 1522, [facility], Chin Delatorre, 120, , [place], tel:[phone] , [place]. tel:[phone] Cathy [place] Juan Alberto In Womens 6-201 [facility], 3 700 PO [place] [facility] [address], [place] [address] [place], [facility] [place], 120, [id number], [place], tel:[phone] , [place]. tel: [phone] Family History Family Member Diagnosis Age At Onset Maternal Grandmother Diabetes mellitus Mother Thyroid Disorder Maternal Grandmother Hypertension Maternal Grandmother Cardiovascular Disease Maternal grandmother Cancer, breast 68 Immunizations Vaccine Date Status Comments Tdap completed Source: New Immunization Record Influenza, injectable, completed Note: work ; Source: Other quadrivalent, preservative free, Provider 3 yrs or older Payers Payer name Insurance type Covered republican ID Authorization(s) Aetna CI [id number] Aetna CI [id number] Social History Type Description Quantity Date Captured Alcohol Use Details No Caffeine Use Details Unknown Tobacco Use Status Unknown Smoking Status Never smoker Vital Signs Date / Height Weight BMI Pulse Blood Temperature Respiratory Body Head BMI Time: Rate Pressure Rate Surface Circumference percentile Area Unknown Chief Complaint And Reason For Visit Unknown Chief Complaint And Reason For Visit Reason For Referral Reason For Referral Unknown Plan Of Care Date Type Action Status Appointment Joyce Douglass BOOKED Appointment Joyce Douglass BOOKED Appointment Joyce Douglass BOOKED Appointment Joyce Douglass BOOKED Future Order: Lab Order Pap Smear With HPV Reflex If ASCUS Ordered ([id number]) Future Order: Radiology Order Nuchal Translucency ([id number]) Ordered Future Order: Radiology Order Complete OB Ultrasound > 14 Ordered Weeks ([id number]) Date Type Problem Goal Intervention Status Start [...]
--- OUTSIDE RECORDS SUMMARY | 2016-11-04 06:12 | External Medical Summary | Continuity of Care Document ---
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 findings Encounter for suprvsn of normal - , third trimester 35 weeks gestation of - Encounter for suprvsn [...] suprvsn of normal - , third trimester 37 weeks gestation of - Encounter for suprvsn of normal - , third trimester 36 weeks gestation of - Procedures Procedure Date OB Visit No Charge - LEAD RECOVERER Cult, pathgnc orgnsm, screen Results Test Name Date and Time Measure Units Reference Range Abnormal Flag Comments Panel Description: STREPTOCOCCUS, GROUP B CULTURE STREPTOCOCCUS, GROUP B 09:30:00 SEE NOTE STREPTOCOCCUS, GROUP B CULTURE CULTURE MICRO NUMBER: [id number] TEST STATUS: FINAL SPECIMEN SOURCE: VAGINAL/ANORECTAL SPECIMEN QUALITY: ADEQUATE RESULT: No group B Streptococcus isolatedTest performed at [facility] [id number] [place] [address]Wqzsjjez: JAVIER NEGRETE DO,MPH Advance Directives Directive Yes / No Effective Date File Name Unknown Encounters Encounter Practice Location Reason(s) Diagnoses Date Provider Care Team Description For Visit Members Cathy [place] Encounter for Juan Alberto Referring In Womens suprvsn of 4-201 Irish. Provider: Health [place], normal 7 700 Jessica PO Box , third Medical [place] 1522, [email or web address] Center S, 700 [place], weeks gestation Chin [place] Medical [place], of 120, Center [id number], Chin [place] 120, [place], tel:[phone] [place], [phone] , [place]. [id number]. tel: tel:[phone] Cathy [place] Encounter for Aug-0 Juan Alberto Referring In Womens suprvsn of 7-201 Irish. Provider: Health DANIELE, normal 7 700 Jessica PO Box , third Medical [place] 1522, [email or web address] Center S, 700 [place], weeks gestation Chin Del[place]re, of 120, [place] [id number], [place] [facility] 120, [place], tel:[phone] [place], , [place]. [id number]. tel: tel:[phone] Cathy [place] Encounter for Moy-3 Juan Alberto In Womens suprvsn of 1-201 Irish. Health DANIELE, normal 7 700 PO Box , third Medical 1522, [email or web address] [facility], weeks gestation Chin Del[place]re, of 120, , [place], [place], tel:[phone] , [place]. tel: [phone] Cathy [place] Encounter for Moy-2 Juan Alberto Referring In Womens suprvsn of 1-201 Irish. Provider: Marysol SANABRIA, normal 7 700 Irish PO Box , third Medical Juan Alberto L, 1522, [email or web address] [place] [address], weeks gestation Chin [place], of 120, [place] [id number], [place] 120, [place], tel:[phone] [place], , . [id number]. tel: tel:[phone] Cathy [place] Encounter for Warren-2 Juan Alberto In Womens suprvsn of 2-201 Irish. Health DANIELE, normal 7 700 PO Box , third Medical 1522, [email or web address] [facility], weeks gestation Chin [place], of 120, , [place], [place], tel:[phone] , [place]. tel: [phone] Cathy [place] Encounter for May-3 Juan Alberto In Womens suprvsn of 1-201 Irish. Health DANIELE, normal 7 700 PO Box , Medical 1522, second Center [place], [email or web address] Chin Delatorre, weeks gestation 120, [id number], of [place], tel:[phone] , [place]. tel: [phone] Cathy [place] Encounter for May-0 Juan Alberto In Womens suprvsn of 3-201 Irish. Health [place], normal 7 700 PO Box , Medical 1522, [facility], [email or web address] Chin Del[place]re, weeks gestation 120, , of [place], [place], tel:[phone] , [place]. tel: [phone] Cathy [place] Encounter for Apr-0 Juan Alberto In Womens suprvsn of 5-201 Irish. Health [place], normal 7 700 PO Box , Medical 1522, second [facility], [email or web address] Chin [place], weeks gestation 120, [id number], of [place], [place], tel:[phone] , [place]. tel: [phone] Cathy [place] Encounter for Apr-0 Juan Alberto In Womens Ultrasound suprvsn of 5-201 Irish. Health [place], normal 7 700 PO Box , Medical 1522, second [facility], [email or web address] Chin [place], weeks gestation 120, , of [place], tel:[phone] , [place]. tel: [phone] Cathy [place] Encounter for Mar-2 Juan Alberto In Womens suprvsn of 2-201 Irish. Health [place], normal 7 700 PO Box , Medical 1522, second [facility], [email or web address] Chin Delatorre, weeks gestation 120, [id number], of [place], tel:[phone] , [place]. tel: [phone] Cathy [place] Encounter for Feb-2 Juan Alberto In Womens suprvsn of 3-201 Irish. Health [place], normal 7 700 PO Box , first Medical 1522, [email or web address] [facility], weeks gestation Chin Delatorre, of 120, [id number], [place], tel:[phone] , [place]. tel:[phone] Cathy [place] Encounter for Feb-2 Juan Alberto In Womens Ultrasound suprvsn of Irish. Health DANIELE, normal 7 700 PO Box , first Medical 1522, [email or web address] [facility], weeks gestation Chin Delatorre, of 120, [id number], [place], tel:[phone] , [place]. tel: [phone] Cathy [place] Pap Smear Florentino-3 Juan Alberto In Womens Screening, - Irish. Health DANIELE, CervixEncounter 7 700 PO Box for suprvsn of Medical 1522, normal [facility], , first Chin Del[place]re, trimester9 weeks 120, , gestation of [place], [place], tel:[phone] , [place]. tel: [phone] Cathy [place] Encounter for Oct-2 Juan Alberto In Womens routine checking Irish. Health DANIELE, of intrauterine 6 700 PO Box contracep Medical 1522, devEncounter for [facility], removal of Chin Delatorre, intrauterine 120, , contraceptive [place], device [place], tel:[phone] , [place]. 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 Marysol SANABRIA, (routine) w 6 700 PO Box abnormal Medical 1522, findingsPap [facility], Smear Screening, Chin Delatorre, Cervix 120, [id number], [place], tel:[phone] , [place]. tel: [phone] Cathy [place] Encounter for Sep-1 Garza In Womens routine checking -201 [place]. Health DANIELE, of intrauterine 6 700 PO Box contracep dev Medical 1522, [facility], Chin Delatorre, 120, [id number], [place], tel:[phone] , [place]. tel: [phone] Cathy [place] Aug-0 Juan Alberto In Womens 6-201 Irish. Health DANIELE, 3 700 PO [facility] 1522, [place] [address] [place], [facility], 120, [id number], [place], [place], tel:[phone] , [place]. tel: [phone] Family History Family Member Diagnosis Age At Onset Maternal Grandmother Diabetes mellitus Mother Thyroid Disorder Maternal Grandmother Hypertension Maternal Grandmother Cardiovascular Disease Maternal grandmother Cancer, breast 68 Immunizations Vaccine Date Status Comments Tdap completed Source: New Immunization Record Influenza, injectable, completed Note: work ; Source: Other quadrivalent, preservative free, Provider 3 yrs or older Payers Payer name Insurance type Covered constitution party ID Authorization(s) Aetna CI [id number] Aetna CI [id number] Social History Type Description Quantity Date Captured [...] Type Action Status Appointment Joyce Douglass BOOKED Future Order: Lab Order Pap Smear With HPV Reflex If ASCUS Ordered ([id number]) Future Order: Radiology Order Nuchal Translucency ([id number]) Ordered Future Order: Radiology Order Complete OB Ultrasound > 14 Ordered Weeks ([id number]) Date Type Problem Goal Intervention Status Start [...]
[2016-11-04] MEDS ORDERED: ACETAMINOPHEN 500 MG TABLET PO PRN ×3 (06:30→16:04)
[2016-11-04] MEDS ORDERED: CALCIUM CARBONATE Chewable 500mg TABLET PO PRN ×3 (06:30→16:04)
[2016-11-04] MEDS ORDERED: CARBOPROST 250 MCG/ML INJECTION IM PRN (06:30)
[2016-11-04] MEDS ORDERED: METHYLERGONOVINE 0.2 MG/ML INJECTION IM PRN (06:30)
[2016-11-04] MEDS ORDERED: MAG-AL + SIM ORAL LIQUID 30ml PO PRN ×3 (06:30→16:04)
[2016-11-04] MEDS ORDERED: LIDOCAINE 1% (10mg/ml) 2mL INJ PF SDV ID PRN (06:30)
[2016-11-04] MEDS: LR 1,000 ML IV SCH ×3 (06:43→14:33)
[2016-11-04] MEDS ORDERED: D5LR 1,000 ML IV PRN (07:00)
[2016-11-04] MEDS ORDERED: OXYTOCIN DRIP 30 UNIT/500 ML ML IV PRN ×2 (07:00→14:52)
--- NOTE | 2016-11-04 08:13 | Anesthesia Preoperative Report ---
Anesthesia Epidural/Spinal Rec - Date and Time Date: 11/04/16 Preoperative Diagnosis: induction Procedure: Labor Epidural Plan: Epidural - Vital Signs Vital Signs: Temperature 98.3 F 11/04/16 07:54 Pulse Rate 88 11/04/16 07:54 Respiratory Rate 12 11/04/16 07:54 Blood Pressure 110/59 11/04/16 07:54 Pulse Oximetry 96 11/04/16 07:54 Oxygen Delivery Method Room Air /Para: P:2 - Medictaions & Allergies Inpatient Medications: Current Medications Acetaminophen (Tylenol) 500 - 1,000 mg PO Q4H PRN PRN Reason: Pain Al Hydroxide/Mg Hydroxide (Maalox Plus) 30 ml PO Q3H PRN PRN Reason: Indigestion Calcium Carbonate (Tums) 500 - 1,000 mg PO Q2H PRN PRN Reason: Indigestion Carboprost Tromethamine (Hemabate) 250 mcg IM O PRN PRN Reason: .Downtime Dextrose/Lactated Ringer's (Dextrose 5%-Lactated Ringers) 1,000 mls @ 125 mls/ hr IV .Q8H PRN PRN Reason: Labor Last Admin: 11/04/16 06:47 Dose: 125 mls/hr Lactated Ringer's (Lactated Ringers) 1,000 mls @ 0 mls/hr IV .Q0M RINA PRN Reason: Per Protocol Last Admin: 11/04/16 06:43 Dose: 125 mls/hr Oxytocin (Pitocin Drip) 30 unit in 500 mls @ 2 mls/hr IV .Q24H PRN; Protocol PRN Reason: Induction/Augmentation Last Admin: 11/04/16 06:48 Dose: 2 mls/hr Lidocaine HCl (Xylocaine-Mpf 1% Vial) 0.2 mg ID O PRN PRN Reason: IV Start Methylergonovine Maleate (Methergine) 0.2 mg IM O PRN Misoprostol (Cytotec) 800 mcg NH ONCE PRN Allergies/Adverse Reactions: Allergies Allergy/AdvReac Type Severity Reaction Status Date / Time clindamycin Allergy Mild rash Verified 08/25/13 10:37 - Home Medications Home Medications: Home Medications Medication Instructions Recorded Confirmed Type Pnv No.95/Ferrous Fum/Folic AC 1 each PO DAILY 10/17/16 10/17/16 History [ Tablet] - Surgical History Anesthesia Reactions: None Hx Family Anesthesia Reaction: No History of Motion Sickness: No - Social History Second Hand Exposure: No Substance Use Type: does not use Alcohol Intake Frequency: does not drink Hx Chewing Tobacco Use: No - Pertinent Findings Lab Data: CBC and BMP 11/04/16 06:32 EKG Rhythm: Normal Sinus Rhythm - Physical Exam Respiratory Exam: lungs clear Cardiovascular Exam: regular rate and rhythm, no murmur - Airway Assessment Mallampati Score: II TMD: 3 Fingerbreadths Neck Extension: good Overall Assessment: no airway concerns - ASA ASA Score: 2 - Discussion Discussion: Discussed risks/options/alternatives of anesthesia and questions answered. Patient consents. Nursing pain assessment noted. Anesthesia Discussion: spouse Attestation Statement: Prior to the delivery of any anesthetic medication, I examined the patient, developed the plan, obtained the patient's consent and discussed the risk and benefits of the procedure with the patient/guardian.
--- NOTE | 2016-11-04 09:14 | OB/GYN Progress Note ---
- Pelvic Exam Dilation (cm): 1 Effacement (%): 60 station: -4 Amniotic membrane status: Intact - Contractions Monitor mode: External Contraction frequency: 3 Contraction pattern: Regular Contraction intensity: Moderate - Status status: Category l - Assessment and Plan Assessment: induction ongoing (Barajas Bulub place tolerated by Pt and fetus. Discussed IOL including R/B/A need for c/s, PPH. Epidural at maternal request)
[2016-11-04] MEDS ORDERED: DiphenhydrAMINE 50 MG/ML INJECTION IVP PRN (09:40)
[2016-11-04] MEDS ORDERED: ONDANSETRON 4 MG/2 ML INJECTION IVP PRN (09:40)
[2016-11-04] MEDS ORDERED: ROPIVACAINE 1% 10MG/ML INJ 200 MG, SUFentanil 50 MCG in NS 100 ML EPI PRN (09:40)
[2016-11-04] MEDS ORDERED: NALOXONE 0.4 MG/ML INJECTION IVP PRN ×2 (09:40→14:52)
--- NOTE | 2016-11-04 12:03 | OB/GYN Progress Note ---
- Pain Control Pain control: Epidural Comments: Pain well controlled - Pelvic Exam Dilation (cm): 5 Effacement (%): 70 station: -3 Amniotic membrane status: Ruptured Comments: AROM clear fluid moderate amount. - Contractions Monitor mode: External Contraction frequency: 3 Contraction pattern: Regular Contraction intensity: Moderate - Status status: Category l - Assessment and Plan Assessment: induction ongoing (Continue with IOL)
--- NOTE | 2016-11-04 13:09 | OB/GYN Progress Note ---
- Pain Control Pain control: Epidural - Pelvic Exam Dilation (cm): 5 Effacement (%): 70 station: -3 Amniotic membrane status: Ruptured - Contractions Monitor mode: External Contraction frequency: 3 Contraction pattern: Regular Contraction intensity: Moderate - Status status: Category l - Assessment and Plan Pitocin rate (mU/min): 20 Assessment: induction ongoing (IUPC placed. )
--- NOTE | 2016-11-04 14:49 | OB/GYN Procedure Note ---
Delivery date: 11/04/16 Events: Labor Induction Induction method: per pitocin protocol Delivery monitor: external FHT Route of delivery: Episiotomy description: None Laceration description: None Anesthesia type: Epidural - Baby 1 Infant gender: Female presentation: Vertex Placenta delivery description: Spontaneous cord vessel description: 3 Vessels at 1 minute: 8 at 5 minutes: 9 Narrative: See Dictated delivery note.
[2016-11-04] MEDS ORDERED: SALINE FLUSH 10ml SYRINGE IVF PRN (14:52)
[2016-11-04] MEDS ORDERED: IBUPROFEN 800 MG TABLET PO PRN (14:52)
[2016-11-04] MEDS ORDERED: DiphenhydrAMINE 25 MG CAPSULE PO PRN ×2 (14:52→16:04)
[2016-11-04] MEDS ORDERED: Oxycodone/Acetaminophen 5/325 1 TAB PO PRN ×2 (14:52→16:04)
[2016-11-04] MEDS ORDERED: HYDROCORTISONE 2.5% CREAM 30gm RECTALLY PRN ×2 (14:52→16:04)
[2016-11-04] MEDS ORDERED: OXYTOCIN DRIP 30 UNIT/500 ML ML IV SCH ×2 (15:00→16:15)
[2016-11-04 15:30] VITALS: BMI 36.8
--- NOTE | 2016-11-04 16:12 | Labor and Delivery Note ---
DATE OF SERVICE 11/04/2016 DESCRIPTION We had a normal spontaneous vaginal delivery of a viable female infant, Nilda, with Apgars of 8/9 and a weight of 3540 grams. At the time of delivery the infant was noted to be in the straight OA position and was delivered over an intact perineum with epidural anesthesia. There was clear amniotic fluid at time of rupture prior to induction. She was induced for logistics via Barajas bulb and Pitocin. Upon admission to Labor/Delivery the patient was noted to be fingertip thick and high and Pitocin was started. Shortly after that a Barajas bulb was placed without difficulty. Approximately an hour and a half after Barajas bulb was placed it did come out and patient was 5. At this time artificial rupture of membranes was performed, noting clear fluid, moderate amount. After that the patient had epidural anesthesia and progressed through labor rather quickly. She was noted to have a couple of prolonged decelerations or heart tones and was noted to have progressed from a 5 to a 7 to complete over 30 minutes. Once she was complete she was noted to be 0 station but secondary to heart tones she was instructed to start pushing and after three pushes and two contractions the patient delivered the fetus. Spontaneous delivery of the placenta with a three-vessel cord. There were no lacerations at delivery and approximately 300 mL of blood loss. Cord blood gasses were obtained and were noted to be normal with pH above 7 on venous and arterial and no base excess greater than 4. MTDD
[2016-11-04] MEDS: IBUPROFEN 800 MG TABLET PO PRN (19:06)
[2016-11-05] MEDS: IBUPROFEN 800 MG TABLET PO PRN ×3 (05:25→20:26)
--- NOTE | 2016-11-05 07:29 | OB/GYN Progress Note ---
OB-PP Progress Note - General PPD1 Maternal Group B Strep: Negative Maternal blood type: O+ Maternal Rubella Status: Immune - Subjective Date: 11/05/16 Lochia: Minimal Pain: contolled Voiding: voiding Nausea or Vomiting Present: No - Objective Vital Signs: Last Vital Signs Temp 98.0 F 11/04/16 23:00 Pulse 66 11/04/16 23:00 Resp 16 11/04/16 23:00 BP 111/62 11/04/16 23:00 Pulse Ox 97 11/04/16 23:00 Urine Output: good General: alert and oriented Abdomen: fundus firm, non-tender Extremities: non-tender Edema: none Laboratory: Laboratory Results - last 24 hr 11/04/16 11/04/16 14:40 14:40 Cord ABG pH 7.390 Cord ABG pCO2 38 Cord ABG pO2 37 Cord ABG HCO3 23 Cord ABG Total CO2 24.2 Cord ABG Base Excess -1.7 Cord ABG O2 Sat 70.0 Cord VBG pH 7.240 Cord VBG pCO2 67 Cord VBG pO2 22 Cord VBG HCO3 29 Cord VBG Total CO2 30.8 Cord VBG Base Excess -0.1 Cord VBG O2 Sat 27.0 - Assessment Assessment: SPSALOMON - Plan Plan: routine care Expected date of discharge: 11/06/16
--- NOTE | 2016-11-05 07:31 | Discharge Instructions ---
Discharge Plan - Med Rec/Dispo Prescriptions: New Oxycodone/APAP 5/325 [Percocet 5/325] 1 - 2 tab PO Q4H PRN #15 tab PRN Reason: Pain Docusate Calcium [Surfak] 240 mg PO DAILY #30 cap Ibuprofen [Motrin] 800 mg PO Q8H PRN #30 tab PRN Reason: Pain No Action Pnv No.95/Ferrous Fum/Folic AC [ Tablet] 1 each PO DAILY
--- NOTE | 2016-11-05 08:08 | Anesthesia Postoperative Note ---
- Date and Time Date: 11/05/16 Time: 08:05 - Status Patient Participated in Evaluation: Patient Participated in Person Vital Signs: Temperature 98.0 F 11/04/16 23:00 Pulse Rate 66 11/04/16 23:00 Respiratory Rate 16 11/04/16 23:00 Blood Pressure 111/62 11/04/16 23:00 Pulse Oximetry 97 11/04/16 23:00 Oxygen Delivery Method Room Air Respiratory Function: Airway Patent, Regular Respirations Cardiovascular Function: Regular Pulse Mental Status: Alert and Oriented Pain Intensity: 2 (back soreness epidural site) Hydration: Taking PO Fluids Complications During Recover: None Apparent Post Anesthesia Care Notes: ambulatory without problems - Follow-Up Instructions Instructions: Per Surgeon
[2016-11-05] MEDS: DOCUSATE CALCIUM 240 MG CAPSULE PO SCH (08:18)
[2016-11-05] MEDS ORDERED: PRENATAL VITAMIN TABLET PO SCH (09:00)
[2016-11-05] MEDS ORDERED: DOCUSATE CALCIUM 240 MG CAPSULE PO SCH (09:00)
[2016-11-05] MEDS ORDERED: [UNRECOGNIZED DRUG - REMARK] PO SCH (09:00)
[2016-11-06 06:31] VITALS: BP 109/68; PULSE 59; RESP 16; TEMP 98.2; O2SAT 97
--- NOTE | 2016-11-06 07:50 | Discharge Instructions ---
Discharge Plan - Med Rec/Dispo Prescriptions: New Oxycodone/APAP 5/325 [Percocet 5/325] 1 - 2 tab PO Q4H PRN #15 tab PRN Reason: Pain Docusate Calcium [Surfak] 240 mg PO DAILY #30 cap Ibuprofen [Motrin] 800 mg PO Q8H PRN #30 tab PRN Reason: Pain No Action Pnv No.95/Ferrous Fum/Folic AC [ Tablet] 1 each PO DAILY - Disposition 01 Discharged Home, Self-Care
[2016-11-06] MEDS: DOCUSATE CALCIUM 240 MG CAPSULE PO SCH (09:42)
== END 2016-11-06 09:32 | disposition home or self-care (01) | DRG 775 ==
LOC: MC 06:07
PROVIDERS: ADMIT Obstetrics & Gynecology; ATTEND Obstetrics & Gynecology